=== PATIENT | female | born 1960 | race Caucasian/White ===

== ENCOUNTER 2018-09-06 21:20 | Inpatient (IN) | payer MEDICAID ==
[2018-09-07 00:02] LABS: ADD MAN DIFF? NO
[2018-09-07] MEDS: SOD CHLORIDE 0.9% 500 ML IV (00:02)
[2018-09-07] MEDS: morphine 4 MG/ML VIAL IV (00:02)
[2018-09-07] MEDS: FAMOTIDINE 20 MG INJ IV (00:02)
[2018-09-07] MEDS: ONDANSETRON 4 MG INJ IV (00:02)
[2018-09-07 00:05] LABS: WHITE BLOOD COUNT 11.9 10^3/ul (4.8-10.8)
[2018-09-07 00:05] LABS: BASOPHILS % 0.3 % (0.0-2.0); EOSINOPHILS % 0.1 % (0.0-7.0); HEMATOCRIT 42.1 % (37.0-47.0); HEMOGLOBIN 13.9 g/dl (12.0-16.0); LYMPHOCYTES # 1.7 10^3/ul (0.8-2.9); LYMPHOCYTES % 14.4 % (15.0-51.0); MEAN CORPUSCULAR HEMOGLOBIN 27.7 pg (29.0-33.0); MEAN PLATELET VOLUME 10.8 fl (7.4-10.4); MONOCYTE # 0.6 10^3/ul (0.3-0.9); MONOCYTES % 5.2 % (0.0-11.0); NEUTROPHIL # 9.5 10^3/ul (1.6-7.5); NEUTROPHILS % 79.6 % (39.0-77.0); PLATELET COUNT 159 10^3/UL (140-415); RED BLOOD COUNT 5.01 10^6/ul (4.20-5.40); RED CELL DISTRIBUTION WIDTH 13.2 % (11.5-14.5)
[2018-09-07 00:08] LABS: POSITIVE DIFF @See below
[2018-09-07 00:10] LABS: ADD UMIC YES; UR ASCORBIC ACID NEGATIVE (NEGATIVE); UR BACTERIA FEW /HPF (NONE SEEN); UR BILIRUBIN (Dip) NEGATIVE (NEGATIVE); UR BLOOD (Dip) 1+ mg/dL (NEGATIVE); UR CLARITY SLIGHTLY CLOUDY (CLEAR); UR COLOR AMBER (YELLOW); UR GLUCOSE (Dip) NEGATIVE (NEGATIVE); UR KETONES (Dip) 1+ mg/dL (NEGATIVE); UR LEUKOCYTE ESTERASE (Dip) NEGATIVE Leu/ul (NEGATIVE); UR MUCUS MODERATE /HPF (NONE SEEN); UR NITRITE (Dip) NEGATIVE (NEGATIVE); UR RBC 2 /HPF (0-5); UR SPECIFIC GRAVITY (Dip) 1.023 (1.003-1.030); UR SQUAMOUS EPITHELIAL CELL MODERATE /HPF (FEW); UR TOTAL PROTEIN (Dip) NEGATIVE (NEGATIVE); UR UROBILINOGEN (Dip) NEGATIVE (NEGATIVE); UR WBC 1 /HPF (0-5)
[2018-09-07 00:44] LABS: ALANINE AMINOTRANSFERASE 234 IU/L (13-69); ALBUMIN 4.4 g/dl (3.3-4.9); ALBUMIN/GLOBULIN RATIO 1.18; ALKALINE PHOSPHATASE 341 IU/L (42-121); ANION GAP 13 (5-13); ASPARTATE AMINO TRANSFERASE 135 IU/L (15-46); BILIRUBIN,INDIRECT 1.4 mg/dl (0-1.1); BILIRUBIN,TOTAL 1.4 mg/dl (0.2-1.3); BLOOD UREA NITROGEN 12 mg/dl (7-20); CARBON DIOXIDE 24 mmol/L (21-31); CHLORIDE 100 mmol/L (97-110); CREATININE 0.38 mg/dl (0.44-1.00); Estimated GFR > 60 mL/min (>60); GLUCOSE 168 mg/dl (70-220); POTASSIUM 3.8 mmol/L (3.5-5.1); SODIUM 137 mmol/L (135-144); TOTAL PROTEIN 8.1 g/dl (6.1-8.1)
[2018-09-07 00:55] LABS: TROPONIN-I < 0.012 ng/ml (0.000-0.120)
[2018-09-07 01:07] LABS: LIPASE 8173 U/L (23-300)
[2018-09-07] MEDS: CIPROFLOXACIN 400MG/D5W 200 ML IVPB ×2 (02:30→05:42)
[2018-09-07] MEDS: SOD CHLORIDE 0.9% 1,000 ML IV (02:31)
[2018-09-07] MEDS ORDERED: NACL 0.9% 3 ML SYG IV (03:00)
[2018-09-07] MEDS ORDERED: BISACODYL (EC) 5 MG TAB PO (03:00)
[2018-09-07] MEDS ORDERED: ACETAMINOPHEN 325 MG TAB PO (03:00)
[2018-09-07] MEDS ORDERED: DOCUSATE SODIUM 100 MG CAP PO (03:00)
[2018-09-07] MEDS ORDERED: ONDANSETRON 4 MG INJ IV (03:00)
[2018-09-07 04:52] LABS: ADD MAN DIFF? NO
[2018-09-07 04:56] LABS: WHITE BLOOD COUNT 8.6 10^3/ul (4.8-10.8)
[2018-09-07 04:56] LABS: BASOPHILS % 0.2 % (0.0-2.0); EOSINOPHILS % 0.2 % (0.0-7.0); HEMATOCRIT 36.9 % (37.0-47.0); HEMOGLOBIN 12.1 g/dl (12.0-16.0); LYMPHOCYTES # 1.8 10^3/ul (0.8-2.9); LYMPHOCYTES % 21.4 % (15.0-51.0); MEAN CORPUSCULAR HEMOGLOBIN 27.8 pg (29.0-33.0); MEAN CORPUSCULAR HGB CONC 32.8 g/dl (32.0-37.0); MEAN CORPUSCULAR VOLUME 84.6 fl (82.0-101.0); MEAN PLATELET VOLUME 10.3 fl (7.4-10.4); MONOCYTE # 0.5 10^3/ul (0.3-0.9); MONOCYTES % 5.9 % (0.0-11.0); NEUTROPHIL # 6.2 10^3/ul (1.6-7.5); NEUTROPHILS % 71.8 % (39.0-77.0); PLATELET COUNT 166 10^3/UL (140-415); RED BLOOD COUNT 4.36 10^6/ul (4.20-5.40); RED CELL DISTRIBUTION WIDTH 13.2 % (11.5-14.5)
[2018-09-07 05:10] LABS: HEMOGLOBIN A1C 10.6 % (0-5.9)
[2018-09-07 05:28] LABS: ALANINE AMINOTRANSFERASE 182 IU/L (13-69); ALBUMIN 3.6 g/dl (3.3-4.9); ALBUMIN/GLOBULIN RATIO 1.12; ALKALINE PHOSPHATASE 278 IU/L (42-121); ANION GAP 10 (5-13); ASPARTATE AMINO TRANSFERASE 93 IU/L (15-46); BILIRUBIN,INDIRECT 1.1 mg/dl (0-1.1); BILIRUBIN,TOTAL 1.1 mg/dl (0.2-1.3); BLOOD UREA NITROGEN 10 mg/dl (7-20); CALCIUM 9.2 mg/dl (8.4-10.2); CARBON DIOXIDE 26 mmol/L (21-31); CHLORIDE 103 mmol/L (97-110); CHOL/HDL RATIO 2.3 RATIO; CHOLESTEROL 164 mg/dl (100-200); CREATININE 0.38 mg/dl (0.44-1.00); Estimated GFR > 60 mL/min (>60); GLUCOSE 129 mg/dl (70-220); HDL CHOLESTEROL 70 mg/dl (37-92); LDL CHOLESTEROL,CALCULATED 71 mg/dl; MAGNESIUM 2.1 mg/dl (1.7-2.5); POTASSIUM 3.6 mmol/L (3.5-5.1); SODIUM 139 mmol/L (135-144); TOTAL PROTEIN 6.8 g/dl (6.1-8.1); TRIGLYCERIDES 114 mg/dl (0-149)
[2018-09-07 05:55] LABS: THYROID STIMULATING HORMONE < 0.015 MIU/L (0.465-4.680)
[2018-09-07 06:10] LABS: LIPASE 5464 U/L (23-300)
[2018-09-07] MEDS ORDERED: GLUCAGON 1 MG INJ IM (09:00)
[2018-09-07] MEDS ORDERED: DEXTROSE 50% 50 ML SYRINGE IV ×2 (09:00)
[2018-09-07] MEDS: INSULIN ASPART [NOVOLOG] 3 ML PEN SC ×4 (09:00→21:26)
[2018-09-07] MEDS ORDERED: GLUCOSE GEL 15 GRAM TUBE BUCCAL (09:00)
[2018-09-07] MEDS ORDERED: GLUCOSE GEL 15 GRAM TUBE PO ×2 (09:00)
[2018-09-07] MEDS: HYDROmorphONE 0.5 MG/0.5 ML SYG IV ×3 (09:54→21:57)
[2018-09-07] MEDS: DEXTROSE 5%-0.45% NACL 1,000 ML IV (10:40)
[2018-09-07] MEDS: KETOROLAC 15 MG INJ IV (10:40)
[2018-09-07 10:41] LABS: HAAIG REFLEX REFLEX FILED
[2018-09-07] MEDS: PANTOPRAZOLE 40 MG INJ IV (10:48)
[2018-09-07 11:08] LABS: INR 0.99; PROTIME 13.2 Sec (11.9-14.9)
[2018-09-07 11:09] LABS: PARTIAL THROMBOPLASTIN TIME 31.1 Sec (23.0-35.0)
[2018-09-07 11:22] LABS: ETHANOL < 10.0 mg/dl (0-0)
[2018-09-07 11:48] LABS: HEPATITIS B SURFACE ANTIGEN NEGATIVE (NEGATIVE)
[2018-09-07 12:06] LABS: HEPATITIS B CORE ANTIBODY NEGATIVE (NEGATIVE); HEPATITIS C VIRAL ANTIBODY NEGATIVE (NEGATIVE)
[2018-09-07] MEDS: INSULIN GLARGINE [LANTus] (100 UNITS/ML) SYG SC (13:04)
[2018-09-08] MEDS: DEXTROSE 5%-0.45% NACL 1,000 ML IV ×2 (00:19→12:41)
[2018-09-08] MEDS: INSULIN ASPART [NOVOLOG] 3 ML PEN SC ×6 (01:45→20:29)
[2018-09-08] MEDS: ACCU-CHEK XX (01:47)
[2018-09-08] MEDS: HYDROmorphONE 0.5 MG/0.5 ML SYG IV ×4 (02:02→17:40)
[2018-09-08 05:01] LABS: ADD MAN DIFF? NO
[2018-09-08 05:04] LABS: WHITE BLOOD COUNT 4.9 10^3/ul (4.8-10.8)
[2018-09-08 05:04] LABS: BASOPHILS % 0.4 % (0.0-2.0); EOSINOPHILS # 0.1 10^3/ul (0.0-0.5); EOSINOPHILS % 1.8 % (0.0-7.0); HEMATOCRIT 38.8 % (37.0-47.0); HEMOGLOBIN 12.3 g/dl (12.0-16.0); LYMPHOCYTES # 1.8 10^3/ul (0.8-2.9); LYMPHOCYTES % 36.3 % (15.0-51.0); MEAN CORPUSCULAR HEMOGLOBIN 27.4 pg (29.0-33.0); MEAN CORPUSCULAR HGB CONC 31.7 g/dl (32.0-37.0); MEAN CORPUSCULAR VOLUME 86.4 fl (82.0-101.0); MEAN PLATELET VOLUME 10.5 fl (7.4-10.4); MONOCYTE # 0.5 10^3/ul (0.3-0.9); MONOCYTES % 9.9 % (0.0-11.0); NEUTROPHIL # 2.5 10^3/ul (1.6-7.5); PLATELET COUNT 160 10^3/UL (140-415); RED BLOOD COUNT 4.49 10^6/ul (4.20-5.40); RED CELL DISTRIBUTION WIDTH 13.2 % (11.5-14.5)
[2018-09-08] MEDS: PIPER-TAZO 3.375 GM IV (PMX) 100 ML IVPB ×4 (05:17→23:20)
[2018-09-08] MEDS: PANTOPRAZOLE 40 MG INJ IV (05:19)
[2018-09-08 05:49] LABS: ALANINE AMINOTRANSFERASE 130 IU/L (13-69); ALBUMIN 3.6 g/dl (3.3-4.9); ALBUMIN/GLOBULIN RATIO 1.12; ALKALINE PHOSPHATASE 241 IU/L (42-121); ANION GAP 10 (5-13); ASPARTATE AMINO TRANSFERASE 58 IU/L (15-46); BILIRUBIN,INDIRECT 0.6 mg/dl (0-1.1); BILIRUBIN,TOTAL 0.6 mg/dl (0.2-1.3); BLOOD UREA NITROGEN 9 mg/dl (7-20); CALCIUM 9.3 mg/dl (8.4-10.2); CARBON DIOXIDE 27 mmol/L (21-31); CHLORIDE 106 mmol/L (97-110); CREATININE 0.43 mg/dl (0.44-1.00); Estimated GFR > 60 mL/min (>60); GLUCOSE 146 mg/dl (70-220); LIPASE 459 U/L (23-300); MAGNESIUM 2.2 mg/dl (1.7-2.5); POTASSIUM 3.8 mmol/L (3.5-5.1); SODIUM 143 mmol/L (135-144); TOTAL PROTEIN 6.8 g/dl (6.1-8.1)
[2018-09-08] MEDS: INSULIN GLARGINE [LANTus] (100 UNITS/ML) SYG SC (09:26)
[2018-09-09] MEDS: INSULIN ASPART [NOVOLOG] 3 ML PEN SC ×4 (01:00→12:41)
[2018-09-09] MEDS: DEXTROSE 5%-0.45% NACL 1,000 ML IV (01:24)
[2018-09-09] MEDS: ACCU-CHEK XX (01:36)
[2018-09-09 05:19] LABS: ADD MAN DIFF? NO
[2018-09-09] MEDS: PANTOPRAZOLE 40 MG INJ IV (05:19)
[2018-09-09] MEDS: PIPER-TAZO 3.375 GM IV (PMX) 100 ML IVPB ×2 (05:19→11:45)
[2018-09-09 05:30] LABS: BASOPHILS % 0.4 % (0.0-2.0); EOSINOPHILS # 0.2 10^3/ul (0.0-0.5); EOSINOPHILS % 3.1 % (0.0-7.0); HEMATOCRIT 37.6 % (37.0-47.0); HEMOGLOBIN 12.1 g/dl (12.0-16.0); LYMPHOCYTES # 2.1 10^3/ul (0.8-2.9); LYMPHOCYTES % 40.5 % (15.0-51.0); MEAN CORPUSCULAR HEMOGLOBIN 27.4 pg (29.0-33.0); MEAN CORPUSCULAR HGB CONC 32.2 g/dl (32.0-37.0); MEAN CORPUSCULAR VOLUME 85.3 fl (82.0-101.0); MEAN PLATELET VOLUME 10.2 fl (7.4-10.4); MONOCYTE # 0.5 10^3/ul (0.3-0.9); MONOCYTES % 9.4 % (0.0-11.0); NEUTROPHIL # 2.4 10^3/ul (1.6-7.5); NEUTROPHILS % 46.2 % (39.0-77.0); PLATELET COUNT 159 10^3/UL (140-415); RED BLOOD COUNT 4.41 10^6/ul (4.20-5.40); RED CELL DISTRIBUTION WIDTH 12.9 % (11.5-14.5)
[2018-09-09 05:30] LABS: WHITE BLOOD COUNT 5.2 10^3/ul (4.8-10.8)
[2018-09-09 06:25] LABS: AMYLASE 63 U/L (11-123)
[2018-09-09 06:30] LABS: ALANINE AMINOTRANSFERASE 91 IU/L (13-69); ALBUMIN 3.4 g/dl (3.3-4.9); ALBUMIN/GLOBULIN RATIO 1.06; ALKALINE PHOSPHATASE 236 IU/L (42-121); ANION GAP 8 (5-13); ASPARTATE AMINO TRANSFERASE 42 IU/L (15-46); BILIRUBIN,INDIRECT 0.8 mg/dl (0-1.1); BILIRUBIN,TOTAL 0.8 mg/dl (0.2-1.3); BLOOD UREA NITROGEN 7 mg/dl (7-20); CALCIUM 9.3 mg/dl (8.4-10.2); CARBON DIOXIDE 26 mmol/L (21-31); CHLORIDE 107 mmol/L (97-110); CREATININE 0.45 mg/dl (0.44-1.00); Estimated GFR > 60 mL/min (>60); GLUCOSE 148 mg/dl (70-220); LIPASE 308 U/L (23-300); SODIUM 141 mmol/L (135-144); TOTAL PROTEIN 6.6 g/dl (6.1-8.1)
[2018-09-09 06:40] LABS: POTASSIUM 3.5 mmol/L (3.5-5.1)
[2018-09-09] MEDS: INSULIN GLARGINE [LANTus] (100 UNITS/ML) SYG SC (09:04)
[2018-09-10] MEDS ORDERED: PANTOPRAZOLE (EC) 40 MG TAB PO (06:00)
== END 2018-09-09 17:00 | disposition home or self-care (01) | DRG 439 ==
LOC: E/R 21:20 → MS1 09-07 02:30
DX: K85.10 Biliary acute pancreatitis without necrosis or infection (principal); K80.10 Calculus of gallbladder with chronic cholecystitis without obstruction; F17.200 Nicotine dependence, unspecified, uncomplicated; K29.70 Gastritis, unspecified, without bleeding; K83.8 Other specified diseases of biliary tract; E11.9 Type 2 diabetes mellitus without complications; K76.0 Fatty (change of) liver, not elsewhere classified
CPT/HCPCS: 36415; 71045; 74176; 74181; 76705; 80053; 80061; 80307; 81001; 82150; 82306; 82962; 83036; 83690; 83735; 84443; 84484; 85025; 85610; 85730; 86704; 86709; 86803; 87340; 93005; 96374; 96375; 99285-25